=== PATIENT | female | born 2000 | race Two or more races ===

== ENCOUNTER 2022-01-21 23:15 | Emergency (ER) | payer OTHER ==
[~2022-01-21] VITALS: Ht 154.9 cm; Wt 90.7 kg
[2022-01-21 23:23] VITALS: BP 139/66
[2022-01-22] MEDS ORDERED: KETOROLAC TROMETH 60MG/2ML VIAL IM ONE (00:45)
[2022-01-22] MEDS ORDERED: IBUP400T23 PO (00:52)
== END 2022-01-22 01:13 | disposition home or self-care (01) ==
LOC: ER 23:22
DX: M25.572 Pain in left ankle and joints of left foot (principal)
CPT/HCPCS: 73610; 96372; 99283; J1885